=== PATIENT | male | born 1985 | race Two or more races ===

== ENCOUNTER 2022-04-03 01:59 | Outpatient (CLI) | payer OTHER | END 2022-04-03 15:56 | disposition home or self-care (01) | LOC: LAB 01:59 | PROVIDERS: ATTEND Obstetrics & Gynecology | DX: Z20.818 Contact with and (suspected) exposure to other bacterial communicable diseases (principal); Z20.828 Contact with and (suspected) exposure to other viral communicable diseases ==

== ENCOUNTER 2023-09-15 05:56 | Day surgery (SDC) | payer OTHER | END 2023-09-15 11:15 | disposition home or self-care (01) | LOC: AMB-ENDOS 05:56 | PROVIDERS: ATTEND Colon & Rectal Surgery | DX: K62.5 Hemorrhage of anus and rectum (principal); K64.8 Other hemorrhoids; R19.4 Change in bowel habit; Z20.822 Contact with and (suspected) exposure to COVID-19 ==